=== PATIENT | female | born 1950 | race Caucasian/White ===

== ENCOUNTER 2023-11-24 10:36 | Emergency (ER) | payer MEDICARE, OTHER ==
[~2023-11-24] VITALS: Ht 162.6 cm; Wt 57.6 kg
[2023-11-24] MEDS ORDERED: SODIUM CHLORIDE 0.9% 1,000 ML IV PRN (11:00)
[2023-11-24] MEDS ORDERED: ondansetron HCL 4 MG/2 ML VIAL IV ONE (11:00)
[2023-11-24 11:03] LABS: HEMATOCRIT 43.1 % (35.0-50.0); HEMOGLOBIN 14.6 g/dL (12.0-18.0); MCH 30.4 (27-36); MCHC 33.9 g/dl (30-36); MCV 89.7 fl (81-99); PLATELET COUNT 218 K/uL (140-440); RDW 14.1 (10.5-15.0)
[2023-11-24 11:13] LABS: ALBUMIN 3.4 g/dL (3.4-5.0); ALBUMIN/GLOBULIN RATIO 0.81 (1.1-2.4); ANION GAP 14.4 (7-21); BILIRUBIN, TOTAL 0.9 ng/dL (0.2-1.0); BUN/CREATININE RATIO 13.04 (6.0-28.6); CREATININE, SERUM 0.69 mg/dL (0.55-1.02); POTASSIUM 3.4 mmol/L (3.5-5.1); PROTEIN, TOTAL 7.6 g/dL (6.4-8.2)
[2023-11-24 11:28] LABS: BANDS, MANUAL DIFF 6; EOSINOPHILS, MANUAL DIFF 2; LYMPHOCYTES, MANUAL DIFF 33; MONOCYTES, MANUAL DIFF 13; NEUTROPHILS, MANUAL DIFF 46
[2023-11-24 13:50] LABS: BILIRUBIN, URINE NEGATIVE (negative); BLOOD/HGB, URINE MODERATE (Negative); KETONE, URINE SMALL (Negative); LEUK ESTERASE, URINE NEGATIVE (negative); NITRITE, URINE NEGATIVE (negative)
[2023-11-24 14:04] LABS: BACTERIA, URINE NONE SEEN /hpf (negative); CASTS, URINE NONE SEEN \\lpf; COLLECTION TYPE, URINE CLEAN CATCH; CRYSTALS, URINE NONE SEEN (0-1+); EPITHELIAL CELLS, URINE SQUAMOUS 1+ /lpf (0-1+); REFLEX CULTURE, URINE No (No); WHITE BLOOD CELLS, URINE 0-1 /HPF (0-5)
[2023-11-24] MEDS ORDERED: DICYCLOMINE HCL10 MG PO (15:08)
[2023-11-24] MEDS ORDERED: METRONIDAZOLE500 MG PO (15:08)
[2023-11-24] MEDS ORDERED: ONDANSETRON ODT8 MG SL (15:08)
[2023-11-24 15:24] VITALS: BP 122/55
== END 2023-11-24 15:25 | disposition home or self-care (01) ==
LOC: ED 10:36
PROVIDERS: Emergency Medicine
DX: K52.9 Noninfective gastroenteritis and colitis, unspecified (principal)
CPT/HCPCS: 36415; 74177; 80053; 81001; 83690; 85025; 87493; 96361; 99284-25; J2405; J7030; Q9967